=== PATIENT | female | born 1975 | race Caucasian/White ===

== ENCOUNTER 2017-01-16 22:05 | Emergency (ER) | payer BC, MEDICAID, OTHER ==
[2017-01-16] MEDS ORDERED: Albuterol/Ipratropium 3.0-0.5 MG/3 ML Neb Soln NEB ONE (22:49)
[2017-01-16] MEDS ORDERED: Benzonatate 100 MG Cap PO ONE (22:51)
[2017-01-16] MEDS ORDERED: predniSONE 20 MG Tab PO ONE (22:52)
--- NOTE | 2017-01-16 22:58 | EDM.PDOC ---
ED HPI GENERAL MEDICAL PROBLEM - General Chief Complaint: Respiratory Problem Stated Complaint: SICK Time Seen by Provider: 01/16/17 22:46 Source of Information: Reports: Patient History Limitations: Reports: No Limitations - History of Present Illness INITIAL COMMENTS - FREE TEXT/NARRATIVE: c/o cold sx with cough for past 4 days, Hx asthma using neb twice daily with rescue inhaler every 4 hours as needed. Last neb this am. Notes stress incontinence with cough. 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: Neurological History: Reports: Migraines Psychiatric History: Reports: Anxiety, Depression Dermatologic History: Reports: Urticaria - Past Surgical History HEENT Surgical History: Reports: None Female Surgical History: Reports: Tubal Ligation Social & Family History - Family History Family Medical History: Noncontributory - Tobacco Use Smoking Status *Q: Current Every Day Smoker Years of Tobacco use: 25 Packs/Tins Daily: 0.2 Second Hand Smoke Exposure: Yes - Caffeine Use Caffeine Use: Reports: Coffee Other Caffeine Use: 2 cups - Alcohol Use Days Per Week of Alcohol Use: 0 - Recreational Drug Use Recreational Drug Use: No ED ROS GENERAL - Review of Systems Review Of Systems: See Below Constitutional: Reports: Fever HEENT: Reports: Sinus Problem, Throat Pain (from coughing) Respiratory: Reports: Shortness of Breath, Wheezing, Cough, Sputum Cardiovascular: Reports: No Symptoms GI/Abdominal: Reports: No Symptoms : Reports: Incontinence (with coughing) Musculoskeletal: Reports: No Symptoms Skin: Reports: No Symptoms Neurological: Reports: No Symptoms ED EXAM, GENERAL - Physical Exam Exam: See Below Exam Limited By: No Limitations General Appearance: Alert, Mild Distress (frequent cough) Eye Exam: Bilateral Eye: EOMI Ears: Normal External Exam Ear Exam: Bilateral Ear: TM normal Nose: Normal Inspection Throat/Mouth: Normal Inspection, Normal Lips, Other (mild pharyngeal erthema) Head: Atraumatic, Normocephalic Neck: Normal Inspection Respiratory/Chest: No Respiratory Distress Cardiovascular: Normal Peripheral Pulses, Regular Rate, Rhythm GI/Abdominal: Normal Bowel Sounds, Soft Extremities: Normal Inspection, Normal Range of Motion Neurological: Alert, Oriented, Normal Cognition Psychiatric: Normal Affect, Normal Mood Skin Exam: Warm, Dry, Intact, Normal Color Course - Vital Signs Last Recorded V/S: Last Vital Signs Temp 97.4 F 01/16/17 23:07 Pulse 99 01/16/17 23:07 Resp 18 01/16/17 23:07 BP 119/64 01/16/17 23:07 Pulse Ox 97 01/16/17 23:07 - Orders/Labs/Meds Orders: Active Orders 24 hr Category Date Time Status RT Aerosol Therapy [] ASDIRECTED Care 01/16/17 22:49 Active CULTURE STREP A CONFIRMATION [] Stat Lab 01/16/17 22:48 Results STREP SCRN A RAPID W CULT CONF [] Stat Lab 01/16/17 22:48 Results Meds: Medications Discontinued Medications Generic Name Dose Route Start Last Admin Trade Name Felixq PRN Reason Stop Dose Admin Albuterol/Ipratropium 3 ml 01/16/17 22:49 01/16/17 23:01 Duoneb 3.0-0.5 Mg/3 Ml NEB 01/16/17 22:50 3 ml ONETIME ONE Administration Benzonatate 200 mg 01/16/17 22:51 01/16/17 23:02 Tessalon Perles PO 01/16/17 22:52 200 mg ONETIME ONE Administration Prednisone 40 mg 01/16/17 22:52 01/16/17 23:03 Prednisone PO 01/16/17 22:53 40 mg ONETIME ONE Administration Departure - Departure Time of Disposition: 23:19 Disposition: Home, Self-Care 01 Condition: Good Clinical Impression: Exacerbation of asthma URI (upper respiratory infection) Qualifiers: URI type: unspecified viral URI Qualified Code(s): J06.9 - Acute upper respiratory infection, unspecified; B97.89 - Other viral agents as the cause of diseases classified elsewhere - Discharge Information Instructions: Asthma, Adult Forms: ED Department Discharge Additional Instructions: prednisone 40mg x 2 days, 30mg x 2 days, 20mg x 2 days 10mg x 2 days tessalon pearles 200mg one every 8 hours s needed for cough clinic follow up next week urgent follow up if difficulty breathing and nebulizer or inhalers not providing relief. albuterol nebulizer every 4 hours as needed. - My Orders Last 24 Hours: My Active Orders 01/16/17 22:48 CULTURE STREP A CONFIRMATION [RM] Stat STREP SCRN A RAPID W CULT CONF [] Stat 01/16/17 22:49 RT Aerosol Therapy [RC] ASDIRECTED - Assessment/Plan Last 24 Hours: My Active Orders 01/16/17 22:48 CULTURE STREP A CONFIRMATION [RM] Stat STREP SCRN A RAPID W CULT CONF [RM] Stat 01/16/17 22:49 RT Aerosol Therapy [RC] ASDIRECTED
[2017-01-16 23:07] VITALS: BP 119/64
== END 2017-01-16 23:40 | disposition home or self-care (01) ==
LOC: DL.ED 22:05
DX: J45.901 Unspecified asthma with (acute) exacerbation (principal); J06.9 Acute upper respiratory infection, unspecified; G43.909 Migraine, unspecified, not intractable, without status migrainosus; F17.210 Nicotine dependence, cigarettes, uncomplicated; Z98.51 Tubal ligation status
CPT/HCPCS: 71020; 87081; 87430; 94640; 99284; A9270; 71010